=== PATIENT | female | born 1995 | race African-American/Black ===

== ENCOUNTER 2017-10-25 22:07 | Emergency (ER) | payer SELFPAY ==
[2017-10-25 22:49] LABS: Pregnancy Test - Urine (BHCG) Negative (Negative); Pregu Control Background? CLEAR/WHITE (CLR/WHITE); Pregu Control Bar Appear? YES (CONTROL BAR)
[2017-10-25 22:50] LABS: Bilirubin Negative (Negative); Blood, Urine Negative (Negative); Clarity Clear (Clear); Glucose, Urine (Dipstick) Negative (Negative); Leukocyte Trace (Negative); Nitrite Negative (Negative); Protein, Urine (Dipstick) Negative (Neg-Trace); pH, Urine 5.5 (5.0-9.0)
[2017-10-25 22:59] LABS: Bacteria/HPF Rare-Few HPF (None Seen); RBC/HPF 0-3 HPF (0-3); WBC/HPF None Seen HPF (0-3)
[2017-10-25] MEDS ORDERED: Azithromycin 250 MG TAB ONE ×2 (23:17→23:34)
[2017-10-25] MEDS ORDERED: cefTRIAXone\\ROCEPHIN 250 MG VIAL ONE (23:17)
[2017-10-25] MEDS ORDERED: Gentamicin 80 MG/2 ML VIAL ONE (23:24)
== END 2017-10-25 23:51 | disposition home or self-care (01) ==
LOC: NAV ERS 22:07
DX: N89.8 Other specified noninflammatory disorders of vagina (principal)
CPT/HCPCS: 81003; 81015; 81025; 87086; 96372; J0696; J1580